=== PATIENT | male | born 1985 | race Caucasian/White ===

== ENCOUNTER 2017-09-11 22:13 | Emergency (ER) | payer SELFPAY ==
[2017-09-12] MEDS ORDERED: ALBUTEROL 2.5 MG/3 ML NEB SOL ONE (00:09)
[2017-09-12] MEDS ORDERED: IPRATROPIUM BROM 0.5MG/2.5ML ONE (00:10)
[2017-09-12 00:14] LABS: Absolute Lymphocytes (CBC) 3.3 K/uL (0.7-4.9); Absolute Monocytes 0.7 K/uL (0.1-1.3); Absolute Neutrophil 2.9 K/uL (1.8-8.0); Eosinophils % 1.7 % (0-4.4); Hematocrit 45.6 % (39.6-49.0); Lymphocytes % 46.8 % (15.3-44.8); MCH 29.5 pg (27.0-35.0); MCV 86.6 fL (80-100); MPV 8.3 fL (7.6-11.3); RBC Red Blood Cell Count 5.27 M/uL (4.33-5.43)
[2017-09-12 00:28] LABS: Bicarbonate 26 mEq/L (21-31); Glucose Level 114 mg/dL (65-120); Potassium 3.8 mEq/L (3.6-5.0); Sodium Level 137 mEq/L (135-145)
[2017-09-12 00:29] LABS: BUN Blood Urea Nitrogen 20 mg/dL (6-20); Glomerular Filtration Rate > 90 mL/min (=/>90)
--- NOTE | 2017-09-12 01:08 | ER ---
Nurse's Notes [facility] Name: Juve Landis Age: 32 yrs Sex: Male : 1985 Arrival Date: 09/11/2017 Time: 22:17 Bed 13 Private MD: Diagnosis: Acute bronchitis Presentation: 09/11 22:23 Presenting complaint: Patient states: SOB after being seen at [facility] Wednesday and dx lk1 pneumonia. pt started levoquin but c/o increased "discomfort" and SOB. Transition of care: patient was not received from another setting of care. Onset of symptoms is unknown. Care prior to arrival: None. 22:23 Method Of Arrival: Ambulatory lk1 22:23 Acuity: NACHO 3 lk1 Triage Assessment: 22:25 General: Appears uncomfortable, Behavior is calm, cooperative. lk1 Historical: - Allergies: 22:25 SHELLFISH; lk1 - Home Meds: 22:25 None [Active]; lk1 - PMHx: 22:25 None; lk1 - PSHx: 22:25 None; lk1 - Immunization history:: Adult Immunizations unknown. - Social history:: Smoking status: Patient/guardian denies using tobacco. Screenin:27 Abuse screen: Denies threats or abuse. Denies injuries from another. Nutritional lk1 screening: No deficits noted. Tuberculosis screening: No symptoms or risk factors identified. Fall Risk None identified. Assessment: 22:31 General: Appears uncomfortable, well groomed, well developed, Behavior is calm, fu cooperative, Reports chills for 1 week ago. fever for. Pain: Complains of pain in chest Pain does not radiate. Pain currently is 8 out of 10 on a pain scale. Quality of pain is described as tightness Pain began 5 days ago Aggravated by coughing. Neuro: No deficits noted. Cardiovascular: Denies nausea, vomiting. Respiratory: Breath sounds with wheezes bilaterally. Derm: Skin is pink, warm \\T\\ dry. Musculoskeletal: No deficits noted. 09/12 00:00 Reassessment: Patient states feeling better. after receiving breathing treatment.. fu Vital Signs: 09/11 22:25 BP 146 / 85; Pulse 84; Resp 20; Temp 97.7(TE); Pulse Ox 96% on R/A; Weight 116.57 kg lk1 (R); Height 5 ft. 7 in. (170.18 cm) (R); Pain 8/10; 22:25 Body Mass Index 40.25 (116.57 kg, 170.18 cm) lk1 ED Course: 22:17 Patient arrived in ED. al2 22:23 Courtney Jack, RN is Primary Nurse. lk1 22:25 Triage completed. lk1 22:25 Arm band placed on Patient placed in an exam room, on a stretcher, on pulse oximetry, lk1 Patient notified of wait time. 22:26 Patient has correct armband on for positive identification. Pulse ox on. NIBP on. lk1 22:27 Patient maintains SpO2 saturation greater than 95% on room air. lk1 22:38 Lauro Rob MD is Attending Physician. 23:07 X-ray completed. Patient tolerated procedure well. tm4 09/12 00:05 Basic Metabolic Panel Sent. fu 00:05 CBC with Diff Sent. fu 00:18 Inserted saline lock: 20 gauge in left hand, using aseptic technique. Blood collected. fu 00:56 Appears to be sleeping. fu 01:26 No provider procedures requiring assistance completed. bleeding controlled, Pressure fu dressing applied. Administered Medications: 09/11 23:55 Drug: Albuterol 2.5 mg Route: Inhalation; fu 23:55 Drug: AtroVENT Aerosol 0.5 mg Route: Inhalation; fu Outcome: 09/12 01:07 Discharge ordered by . 01:35 Discharged to home ambulatory. fu 01:35 Condition: improved 01:35 Discharge instructions given to patient, Instructed on discharge instructions, Demonstrated understanding of instructions, medications, Prescriptions given X 2. 01:43 Patient left the ED. fu Signatures: Yuli Wells tm4 Courtney Jack, RN RN lk Lauro Rob MD MD Shawn Banks RN RN fu Love, Angelica al Corrections: (The following items were deleted from the chart) 01:40 01:39 Reassessment: Patient states feeling better. after receiving breathing fu treatment.. fu
--- NOTE | 2017-09-12 01:09 | EDPHYS ---
Physician Documentation [facility] Name: Juve Landis Age: 32 yrs Sex: Male : 1985 Arrival Date: 09/11/2017 Time: 22:17 Bed 13 Private MD: ED Physician Lauro Rob HPI: 09/12 01:02 This 32 yrs old Male presents to ER via Ambulatory with complaints of Chest gs Pain, Breathing Difficulty. 01:02 The patient or guardian reports cough, difficulty breathing. Onset: The gs symptoms/episode began/occurred 1 week(s) ago, and became persistent. Severity of symptoms: At their worst the symptoms were moderate, in the emergency department the symptoms are unchanged. Modifying factors: The symptoms are alleviated by nothing, the symptoms are aggravated by cold weather. Associated signs and symptoms: Pertinent positives: chest pain, with cough, fever. The patient has experienced similar episodes in the past, a few times. The patient has been recently seen by a physician: with similar presenting complaints, was given a prescription for antibiotics. Historical: - Allergies: 09/11 22:25 SHELLFISH; lk1 - Home Meds: 22:25 None [Active]; lk1 - PMHx: 22:25 None; lk1 - PSHx: 22:25 None; lk1 - Immunization history:: Adult Immunizations unknown. - Social history:: Smoking status: Patient/guardian denies using tobacco. ROS: 09/12 01:02 All other systems are negative. gs Exam: 01:02 Head/Face: Normocephalic, atraumatic. Eyes: Pupils equal round and reactive to light, gs extra-ocular motions intact. Lids and lashes normal. Conjunctiva and sclera are non-icteric and not injected. Cornea within normal limits. Periorbital areas with no swelling, redness, or edema. ENT: Nares patent. No nasal discharge, no septal abnormalities noted. Tympanic membranes are normal and external auditory canals are clear. Oropharynx with no redness, swelling, or masses, exudates, or evidence of obstruction, uvula midline. Mucous membranes moist. Neck: Trachea midline, no thyromegaly or masses palpated, and no cervical lymphadenopathy. Supple, full range of motion without nuchal rigidity, or vertebral point tenderness. No Meningismus. Chest/axilla: Normal chest wall appearance and motion. Nontender with no deformity. No lesions are appreciated. Cardiovascular: Regular rate and rhythm with a normal S1 and S2. No gallops, murmurs, or rubs. Normal PMI, no JVD. No pulse deficits. Abdomen/GI: Soft, non-tender, with normal bowel sounds. No distension or tympany. No guarding or rebound. No evidence of tenderness throughout. Back: No spinal tenderness. No costovertebral tenderness. Full range of motion. Skin: Warm, dry with normal turgor. Normal color with no rashes, no lesions, and no evidence of cellulitis. MS/ Extremity: Pulses equal, no cyanosis. Neurovascular intact. Full, normal range of motion. Neuro: Awake and alert, GCS 15, oriented to person, place, time, and situation. Cranial nerves II-XII grossly intact. Motor strength 5/5 in all extremities. Sensory grossly intact. Cerebellar exam normal. Normal gait. 01:02 Constitutional: The patient appears alert, awake. 01:02 Respiratory: the patient does not display signs of respiratory distress, Respirations: normal, symetrical, no use of accessory muscles, no grunting, no retractions, no tachypnea, Breath sounds: decreased breath sounds, that are mild, are located in both bases. Vital Signs: 09/11 22:25 BP 146 / 85; Pulse 84; Resp 20; Temp 97.7(TE); Pulse Ox 96% on R/A; Weight 116.57 kg lk1 (R); Height 5 ft. 7 in. (170.18 cm) (R); Pain 8/10; 22:25 Body Mass Index 40.25 (116.57 kg, 170.18 cm) lk1 MDM: 22:48 Patient medically screened. 09/12 01:02 Differential Diagnosis: Bronchitis Viral Syndrome Pneumonia. Data reviewed: vital gs signs, nurses notes. Response to treatment: the patient's symptoms have markedly improved after treatment, and as a result, I will discharge patient. 01:08 Counseling: I had a detailed discussion with the patient and/or guardian regarding: the gs presence of at least one elevated blood pressure reading (>120/80) during this emergency department visit. Special discussion: I have referred the patient to see his PCP for further evaluation of high blood pressure. 09/11 22:49 Order name: CBC with Diff gs 09/11 22:49 Order name: Basic Metabolic Panel 09/11 22:49 Order name: XRAY Chest Pa And Lat (2 Views) 09/12 00:21 Order name: CBC with Automated Diff; Complete Time: 00:24 EDNH 09/12 00:28 Order name: Basic Metabolic Panel [facility] 09/11 23:09 Order name: EKG; Complete Time: 23:10 gs Administered Medications: 09/11 23:55 Drug: Albuterol 2.5 mg Route: Inhalation; fu 23:55 Drug: AtroVENT Aerosol 0.5 mg Route: Inhalation; fu Disposition: 09/12/17 01:07 Discharged to Home. Impression: Acute bronchitis. - Condition is Stable. - Discharge Instructions: Acute Bronchitis, Managing Your High Blood Pressure. - Prescriptions for Prednisone 20 mg Oral Tablet - take 1 tablet by ORAL route once daily for 5 days; 5 tablet. Albuterol Sulfate 90 mcg/actuation - inhale 1-2 puff by INHALATION route every 4-6 hours; 1 Inhaler. - Medication Reconciliation Form, Thank You Letter, Antibiotic Education, Prescription Opioid Use form. - Follow up: Private Physician; When: 2 - 3 days; Reason: Re-evaluation by your physician. Signatures: Dispatcher [employer] [facility] Courtney Jack RN RN [facility] Lauro Rob MD MD Shawn Banks RN RN
--- NOTE | 2017-09-12 13:27 | RAD REPORT ---
EXAM DESCRIPTION: RAD - Chest Pa And Lat (2 Views) - 09/11/2017 11:09 pm CLINICAL HISTORY: Chest pain. COMPARISON: None. FINDINGS: Linear subsegmental atelectasis is present in the left mid lung. The lungs are underinflat ed resulting in vascular crowding. The heart is normal in size. No displaced fractures.
== END 2017-09-12 01:43 | disposition home or self-care (01) ==
LOC: ER 22:13
DX: J20.9 Acute bronchitis, unspecified (principal); Z91.013 Allergy to seafood
CPT/HCPCS: 36415; 71046; 80048; 85025; 99285